=== PATIENT | female | born 1950 | race Caucasian/White ===

== ENCOUNTER → 2019-01-04 | Outpatient (CLI) | payer MEDICARE, BC ==
--- NOTE | 2019-01-04 14:52 | KCIC ---
PQRS Compliance Statement: One or more of the following individualized dose reduction techniques were utilized for this examination: 1. Automated exposure control 2. Adjustment of the mA and/or kV according to patient size 3. Use of iterative reconstruction technique CT lumbar spine without contrast 01/04/2019. INDICATION: Lumbar radiculitis with history of prior lumbar surgery. COMPARISON: None available. TECHNIQUE: Multiple axial CT images of the lumbar spine were obtained without intravenous contrast. Coronal and sagittal reformats are provided. FINDINGS: There is minimal retrolisthesis of L4 on L5. Vertebral body heights are maintained. There is no acute fracture identified. There is no pars defect. There is moderate disc height loss at L5-S1 with mild disc height loss at L4-L5. Vacuum disc phenomena is noted at L4-L5 and L5-S1 with moderate intramarginal osteophytosis at L5-S1. Abdominal aorta is normal in caliber with mild calcified atheromatous plaque. No suspicious retroperitoneal abnormality is identified. Visualized portions of the kidneys appear intact. Adrenal glands are normal in appearance. L1-L2: Disc is normal in configuration. No significant facet arthropathy. No neuroforaminal or spinal canal stenosis. L2-L3: Disc is normal in configuration. No significant facet arthropathy. No neuroforaminal or spinal canal stenosis. L3-L4: Disc is normal in configuration. Mild facet arthropathy. No neuroforaminal or spinal canal stenosis. L4-L5: There is a right central disc protrusion. There is mild to moderate facet arthropathy ligamentum flavum infolding. There is mild to moderate bilateral neuroforaminal stenosis. There is narrowing of the right lateral recess. No significant spinal canal stenosis. L5-S1: There is mild disc bulge. There is moderate facet arthropathy. There is mild bilateral osseous neural foraminal stenosis. No spinal canal stenosis. IMPRESSION: Mild degenerative changes of lumbar spine, most prominent at L4-L5 as described in detail above. Electronically signed by: Aixa Shaikh MD (01/04/2019 2:49 PM) [facility]
== END | disposition home or self-care (01) ==
LOC: KCIC 12:22
PROVIDERS: ATTEND Anesthesiology Pain Medicine
DX: M47.896 Other spondylosis, lumbar region (principal); M12.88 Other specific arthropathies, not elsewhere classified, other specified site
CPT/HCPCS: 72131